=== PATIENT | female | born 1950 | race Caucasian/White ===

== ENCOUNTER 2023-03-29 15:00 | Outpatient (RCR) | payer MEDICARE, OTHER, SELFPAY ==
--- NOTE | 2023-03-05 09:12 | HP.PTEVAL ---
Patient's Visit Information Visit Information Visit Information: GENIA JAIMES is a 72 year old F referred to Physical Therapy by Dr. Rossana Molina MD with a diagnosis of ACUTE ALONDRA LBP. Date of Evaluation: 03/05/23 Physical Therapist: Shannon Barba PT, Cert MDT Visit Plan Frequency: 2-3x /Week Duration: 4-6 Weeks Plan: *CHECK AUTH NEXT VISIT: RECORD # OF VISITS APPROVED AND EXPIRATION DATE. CHECK CODES APPROVED WITH POC* AQUATIC THREAPY FOR PAIN RELIEF, POSTURE CORRECTION/STRENGTHENING, INSTRUCTION IN APPROPRIATE BODY MECHANICS AND ACTIVITY MODIFICATIONS. DLS STARTING WITH A NEUTRAL SPINE PROGRESSING ROM TOLERATED. ALONDRA LE ROM, STRETCHING AND STRENGTHENING. HEP INSTRUCTION. Subjective Subjective: Work/Leisure: RETIRED. 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 Present symptoms: ALONDRA LOW BACK AND ALONDRA THIGH PAIN. R GROIN PAIN. PATIENT DENIES ALONDRA LE NUMBNESS OR TINGLING. Present since: ABOUT 2 MONTHS AGO Pain Scale: WORST 8/10, LEAST 6/10 Currently: 8/10 Is it getting better, worse or staying the same: STAYING THE SAME Commenced as a result of: TRYING A PAIR OF SHOES ON THEN BENT OVER TO PICK SOMETHING UP Symptoms at onset: SEVERE R BUTTOCK PAIN Worse: PUTTING TOO MUCH PRESSURE ON R LE. BENDING OVER. COMING UP FROM BENT POSITION. SITTING. Better: STRETCHING R KNEE TO CHEST AND CROSSING R LEG OVER BODY Disturbed sleep: NO Previous history/Previous treatment: H/O L LE SCIATICA YEARS AGO THAT GOT BETTER WITH PT. NO BACK SURGERY. NO BACK INJECTIONS. NO HIP SX OR INJECTIONS. Treatment this episode: TRIED PT AT [facility] ABOUT 6 VISITS BUT IT DIDN'T HELP - IT WOULDN'T LEAVE MY LEG . NO CHIROPRACTIC. PRESCRIPTION ANTI-INFLAMMATORY X 6 WKS WITH TEMPORARY RELIEF. Coughing/sneezing/straining: NEGATIVE Gait: I CAN'T CARRY ANYTHING - EVEN MY PURSE BECAUSE IT BOTHERS MY LEG AND BACK. CAN'T WALK AT NORMAL PACE. AT FIRST USED A CANE BECAUSE COULDN'T WALK ON R LEG. Bowel or Bladder Dysfunction: NO Accidents: NO Unexplained weight loss: NO Imaging: RECENT LUMBAR X-RAY SHOWING ARTHRITIS IN SPINE PER PATIENT REPORT AT [facility]. NO MRI. PMH/Recent major surgery: RHEUMATOID ARTHRITIS. 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 HYPOTHYROIDISM. HIGH CHOLESTEROL. Objective Objective: Sitting/Standing Posture: POOR. INCREASED KYPHOSIS. NORMAL LORDOSIS. NO RELAVANT LATERAL SHIFT. FH. RSD'S. Active Correction of posture: Other Observations: THIS PATIENT AMBULATES INDEP'LY INTO PT WITHOUT ANY AD'S OR LOB WITH FAIR CADANCE. INDEP TRANSFER SIT TO STAND WITHOUT UE ASSIST. Sensory deficit: ALONDRA LE LIGHT TOUCH SENSATION GROSSLY INTACT AND SYMMETRICAL ROM deficit: VERY TIGHT ALONDRA HS'S AND GASTROC-SOLEUS COMPLEX'S R > L. ALONDRA HIP IR/ER TIGHTNESS SYMMETRICALLY WITH C/O PAIN WITH TESTING L HIP ER AND R HIP IR AND ER. Motor deficit: R HIP 4-/5, KNEE 4/5, ANKLE 5/5. L HIP 4/5, KNEE 5/5, ANKLE 5/5. Reflexes: 2/3 ALONDRA LE'S. Dural Signs: POSITIVE R LE Lumbar mvmt loss: flex - MOD TO CINDY ext - CINDY R SG - CINDY L SG - CINDY PATIENT C/O INCREASED R BUTTOCK AND THIGH PAIN WITH LUMBAR FLEXION AND R SG TESTING. Core strength: POOR Palpation: TENDERNESS WITH PALPATION OF LOWER LUMBAR SPINE, SACRUM, R BUTTOCK AND R GREATER TROCH REGIONS. TREATMENT: NEUROMUSCULAR REEDUCATION - RETRAINING OF MVMT AND POSTURE FOR SITTING, LYING AND STANDING ACTIVITIES. Balance/Special Test Scores Oswestry Low Back Score: 10 Goals Goal 1:: DECRASE C/O LOW BACK PAIN Goal Time Frame: 4-6 Weeks Goal 2:: IMPROVE PERSONAL CARE, LIFTING, SITTING AND HOMEMAKING FUNCTION Goal Time Frame: 4-6 Weeks Goal 3:: INSTRUCT IN PROPHYLAXIS Goal Time Frame: 4-6 Weeks Anticipated Interventions Patient/Client Instruction: Educate patient on: Condition, Plan of Care and Risk Factors For the Purpose of:: To improve self management Therapeutic Exercise to Include: Strength training, Body mechanics, Postural training, Flexibilty training, Neuromotor development, In an aquatic setting and Dynamic Lumbar Stabilization For the Purpose of:: To decrease pain, To increase ROM, To improve muscle performance and motor function, To increase tolerance to activity/condition/position and To improve ability of physical actions for home/community/work/leisure Cryotherapy (ice pack, ice massage): Yes Thermo therapy (hot pack): Yes Ultrasound (thermal/non thermal): Yes For the Purpose of:: To decrease pain and To improve nutrient delivery to tissue Text: Thank you for the opportunity to evaluate your patient. For Medicare and Medicare HMO plans, please review the plan of care and approve it. It will need to be FAXED BACK to us at [phone] for Medicare purposes. For Medicare only, by signing this I certify the plan of care. Please let me know if there are questions or concerns regarding this plan of care. Physician Signature: Date:
== END 2023-03-29 19:00 | disposition home or self-care (01) ==
LOC: PT 15:00
PROVIDERS: PCP Internal Medicine; Referring Provider Internal Medicine; Visit Provider Internal Medicine
DX: M54.50 Low back pain, unspecified (principal)
CPT/HCPCS: 97112; 97113; 97162

== ENCOUNTER 2023-11-18 10:00 | Emergency (ER) | payer MEDICARE, OTHER, SELFPAY ==
[2023-11-18 10:01] VITALS: BP 146/75; PULSE 64; RESP 16; TEMP 36.6; O2SAT 94; BMI 22.6
--- NOTE | 2023-11-18 10:33 | CT_ITS ---
STUDY: CT BRAIN WITHOUT CONTRAST REASON FOR EXAM: Female, 73 years old. near syncope RADIATION DOSAGE (If Supplied By Facility): CTDIvol = ( 44.99 ) mGy, DLP = ( 829.85 ) mGycm TECHNIQUE: Transaxial CT imaging of the brain was performed without administration of intravenous contrast material. Individualized dose optimization techniques were used for this CT. COMPARISON: No relevant priors. FINDINGS: Normal soft tissue structures. There is hyperostosis frontalis internus. There is a 4.8 mm densely calcified nodular density along the anterior left side of the cerebral falx. A meningioma should be ruled out. There is mild cerebral atrophy with widening of the extra-axial spaces and ventricular dilatation. Normal white matter tracts of the cerebral hemispheres. There are small punctate calcifications of the basal ganglia which are seen in the aging brain as a normal variant. Normal brainstem. Normal cerebellum. There is no intracranial hemorrhage. There are no findings of an acute ischemic infarction. Normal visualized paranasal sinuses. CT/Brain/Head without Contrast IMPRESSION: Chronic involutional changes of the brain. Questionable 4.8 mm calcified granuloma in the anterior aspect of the left cerebral falx. Electronically Signed: David Dasilva MD at 12:17 EDT ,
--- NOTE | 2023-11-18 10:33 | EKG12_ITS ---
Test Reason : Blood Pressure : / mmHG Vent. Rate : 068 BPM Atrial Rate : 068 BPM P-R Int : 136 ms QRS Dur : 086 ms QT Int : 404 ms P-R-T Axes : 059 056 036 degrees QTc Int : 429 ms Normal sinus rhythm Nonspecific T wave abnormality Abnormal ECG Confirmed by ABHIJEET ALEXANDER, ANDRIY ([id number]), editorial intern TARIQ SARKAR ([id number]) on 11/22/2023 11:31:54 AM Referred By: Confirmed By:ANDRIY JHA MD
--- NOTE | 2023-11-18 10:40 | EDS_ITS ---
HPI History of Present Illness Chief Complaint: Dizziness Informant: patient Onset/Context/Timing Onset: Today Narrative Narrative: Patient presents secondary to a lightheaded episode with a near fall. Patient states that she will get brief intermittent episodes of lightheadedness that will typically last a minute or 2. She denies chest pain or palpitations during the episode. She does not feel she is when to pass out. Today she was at work at [employer] when a lightheaded episode came on and persisted. She felt that she was going to fall but a coworker came past and helped her to a chair. She did not have chest pain or palpitations. She did not feel nauseated. She does report increased stress recently with her currently in the hospital. She denies headaches. [facility] Medical History (Updated 11/18/23 @ 14:[address] Olive Salazar MD) Crohn's disease Anxiety and depression Hyperthyroidism Home Medications ?Medication ?Instructions ?Recorded ?Last Taken ?Type NK 11/18/23 Unknown History Surgical History (Updated 11/18/23 @ 10:[address] Olive Salazar MD) History of colectomy Social History Smoking Status: Never smoker ROS ROS ED Constitutional Constitutional ED: Denies chills or fever(s) Eyes Eyes: Denies discharge from eye(s) ENT ENT ED: Denies discharge from eye(s), rhinorrhea or sore throat Cardiovascular Cardiovascular: Denies chest pain or palpitations Respiratory/Chest Respiratory/Chest: Denies cough or dyspnea Gastrointestinal Gastrointestinal: Denies abdominal pain, nausea or vomiting Genitourinary Genitourinary ED: Denies difficulty urinating or dysuria Musculoskeletal Musculoskeletal: Denies back pain or extremity pain Integumentary Denies Abrasions or rash Neurologic Neurologic: Reports weakness; Denies headache(s) Psychiatric Psychiatric: Denies anxiety or depression Allergic/Immunologic Allergic/Immunologic ED: Denies lip swelling or urticaria EXAM Physical Exam Const Vital Signs: 11/18/23 10:01 11/18/23 10:59 11/18/23 12:00 Temperature 97.8 F 98.1 F Temperature Source Oral Oral Pulse Rate 64 78 Pulse Rate [Lying] 68 Pulse Rate [Sitting (for 1 minute prior to obtaining)] 68 Pulse Rate [Standing (for 1 minute prior to obtaining)] 74 Respiratory Rate 16 16 Blood Pressure 146/75 H 137/87 H Blood Pressure [Lying] 129/73 H Blood Pressure [Sitting (for 1 minute prior to obtaining)] 143/78 H Blood Pressure [Standing (for 1 minute prior to obtaining)] 129/82 H Blood Pressure Mean 98 103 Blood Pressure Mean [Lying] 91 Blood Pressure Mean [Sitting (for 1 minute prior to obtaining)] 99 Blood Pressure Mean [Standing (for 1 minute prior to obtaining)] 97 Pulse Ox 94 97 Oxygen Delivery Method Room Air 11/18/23 13:50 Temperature Temperature Source Pulse Rate 58 L Pulse Rate [Lying] Pulse Rate [Sitting (for 1 minute prior to obtaining)] Pulse Rate [Standing (for 1 minute prior to obtaining)] Respiratory Rate 16 Blood Pressure 125/86 H Blood Pressure [Lying] Blood Pressure [Sitting (for 1 minute prior to obtaining)] Blood Pressure [Standing (for 1 minute prior to obtaining)] Blood Pressure Mean 99 Blood Pressure Mean [Lying] Blood Pressure Mean [Sitting (for 1 minute prior to obtaining)] Blood Pressure Mean [Standing (for 1 minute prior to obtaining)] Pulse Ox 93 Oxygen Delivery Method Room Air Positive well nourished and well developed General Appearance ED: well developed HEENT Reports normocephalic and head/scalp atraumatic Eyes PERRL and EOMs intact bilaterally Neck supple Chest Wall inspection of chest normal and palpation of chest normal Resp normal respiratory effort and clear to auscultation bilaterally Cardio regular rate and regular rhythm GI normal to inspection, nondistended, normoactive bowel sounds Palpation: soft Extremity normal to inspection Neuro oriented x3 and no sensory deficits noted Sensorium / Orientation: alert Motor Exam: strength 5/5 throughout Psych mental status grossly normal Skin no rashes or lesions noted MDM MDM MDM Narrative Medical decision making narrative: Patient placed on hall monitor. EKG obtained to evaluate for cardiac arrhythmia/ischemia. IV line initiated. Labwork obtained to evaluate for le ukocytosis, anemia, and electrolyte derangement. Chest x-ray obtained to evaluate for acute lung pathology, cardiac size, or mediastinal abnormality. CT scan of the head will be obtained given recurrent dizzy episodes. Orthostatic vital signs will also be obtained. History & Record Review Discussion w/independent historian: Patient Lab Data Attestation: I reviewed the patient's lab results. Labs: Laboratory Results - last 24 hr 11/18/23 11/18/23 10:35 13:15 WBC 4.2 L RBC 4.07 L Hgb 12.6 Hct 38.6 MCV 94.8 MCH 31.0 MCHC 32.6 RDW Std Deviation 45.8 H RDW Coeff of Hellen 13.3 Plt Count 186 MPV 9.8 Immature Gran % (Auto) 0.200 Neut % (Auto) 58.0 Lymph % (Auto) 26.6 Rowan % (Auto) 10.2 H Eos % (Auto) 4.3 Baso % (Auto) 0.7 Absolute Neuts (auto) 2.4 Absolute Lymphs (auto) 1.12 Nucleated RBC % 0 Sodium 136 Potassium 3.9 Chloride 103 Carbon Dioxide 27.0 Anion Gap 6 BUN 9 Creatinine 0.69 Estim Creat Clear Calc 47.26 Est GFR (MDRD) Af Amer 107 Est GFR (MDRD) Non-Af 88 BUN/Creatinine Ratio 13.0 Glucose 102 Calcium 9.5 Troponin I High Sens 5 7 Radiography Chest X-Ray - ED: 1 View, Read by ED Physician, Normal, Heart, Lungs and Mediastinum Diagnostic Testing: Clinical Impression(s) from Imaging Studies Brain CT 11/18/23 10:33 IMPRESSION: Chronic involutional changes of the brain. Questionable 4.8 mm calcified granuloma in the anterior aspect of the left cerebral falx. Electronically Signed: David Dasilva MD at 12:17 EDT , Chest X-Ray 11/18/23 11:23 IMPRESSION: Hyperinflation. The lungs are clear. Electronically Signed: David Dasilva MD at 12:15 EDT , EKG Initial EKG: Attestation: I personally reviewed and interpreted this EKG as follows: Interpretation: Sinus Rhythm (Sinus at 68 with nonspecific T wave flattening lateral leads. No acute ST change.) Treatment and Re-Evaluation :: CBC was white count of 4.2 with a hemoglobin 12.6. Normal differential. Chemistry studies unremarkable. Initial troponin is 5 with a 2-hour repeat troponin of 7. Portable chest x-ray per my interpretation reveals no acute findings. Radiology interpretation reviewed and agrees. EKG is sinus with no evidence of ischemia. Orthostatic vital signs were obtained and are unremarkable. Patient feels well on repeat evaluation. We discussed potential stress causing some of her symptoms as her is currently in the hospital and she has been trying to do more than normal. At this time she is reassured with the negative workup that we have performed and she will follow with her primary care physician. Return instructions given. Discharge Plan Triage Chief Complaint: Dizziness ED Provider: Olive Salazar Dx/Rx/DC Orders Clinical Impression: Fatigue, Dizziness Instructions: ED Dizziness, Uncertain Cause Prescriptions: No Action NK Primary Care Provider: Rossana Molina Referrals: Rossana Molina MD [Primary Care Provider] - 1 Week if not improving Print Language: Burundian Disposition Disposition: Home, Self Care
[2023-11-18 10:59] VITALS: BP 129/73; BP 129/82; BP 143/78; PULSE 68; PULSE 74
[2023-11-18 11:01] LABS: Absolute Lymphocyte Count 1.12 X10^3/uL (0.83-4.51); Absolute Neutrophil Count 2.4 X10^3/uL (2.0-7.7); Basophil# 0.03 X10^3/uL; Basophil% 0.7 % (0-1); Eosinophil# 0.18 X10^3/uL; Eosinophils% 4.3 % (0-5); Hematocrit 38.6 % (37-47); Hemoglobin 12.6 g/dL (12.0-15.0); Lymphocyte # 1.12 X10^3/ul (0.83-4.51); Lymphocyte % 26.6 % (19-41); Mean Corp Hgb Conc 32.6 g/dL (32-36); Mean Corpuscular Volume 94.8 fL (81-99); Mean Platelet Vol. 9.8 fl (6.2-12.0); Monocyte# 0.43 X10^3/uL; Monocyte% 10.2 % (0-10); NRBC Flagged by Analyzer 0 % (0-5); Neutrophil # 2.44 X10^3/uL (2.7-7.7); Platelet Count 186 K/mm3 (150-450); RBC Distribution Width CV 13.3 % (11.6-14.6); RBC Distribution Width SD 45.8 fl (35.1-43.9); Red Blood Count 4.07 M/mm3 (4.2-5.4); White Blood Count 4.2 K/mm3 (4.4-11.0)
[2023-11-18 11:23] LABS: Anion Gap 6 (5-15); BUN 9 mg/dL (7-18); Calcium,Total 9.5 mg/dL (8.5-10.1); Chloride 103 mmol/L (98-107); Creatinine, Serum 0.69 mg/dL (0.55-1.02); EST Glomerular Filtration Rate 88 mL/min (>60); Est Glom Filt Rate - Afr Amer 107 mL/min (>60); Estimated Creatinine Clearance 47.26 ml/min; Glucose 102 mg/dL (74-106); Potassium 3.9 mmol/L (3.5-5.1); Sodium Level 136 mmol/L (136-145); Troponin-I HS (w/2H Reflex) 5 pg/mL (3.0-54.0)
--- NOTE | 2023-11-18 11:23 | RAD_ITS ---
STUDY: X-RAY CHEST REASON FOR EXAM: Female, 73 years old. Dizzy TECHNIQUE: Single AP portable view of the chest. COMPARISON: Comparison is made with prior study dated December 27, 2003. FINDINGS: EKG electrodes are seen. Hyperinflation. The lungs are clear. There is no demonstrated pleural abnormality. Normal size heart. Normal mediastinum and anyi. Normal visualized pulmonary arteries. Normal visualized aortic arch and descending thoracic aorta. There are degenerative changes of the visualized thoracic spine. Normal visualized ribs, clavicles, and shoulders. There is no demonstrated abnormality of the visualized soft tissue structures of the upper abdomen. RAD/Chest 1 View (Portable) IMPRESSION: Hyperinflation. The lungs are clear. Electronically Signed: David Dasilva MD at 12:15 EDT ,
[2023-11-18] MEDS: 0.9% Normal Saline (1000mL) 1,000 ML 1000 ML IV (11:33)
--- NOTE | 2023-11-18 11:57 | ED.RN ---
[place] [facility] [id number]. DR URIBE
[2023-11-18 12:00] VITALS: BP 137/87; PULSE 78; RESP 16; TEMP 36.7; O2SAT 97
[2023-11-18 12:58] LABS: Reflex Troponin-HS? (from REC) Y
[2023-11-18 13:41] LABS: Troponin-I HS 7 pg/mL (3.0-54.0)
[2023-11-18 13:50] VITALS: BP 125/86; PULSE 58; RESP 16; O2SAT 93
[2023-11-18 14:00] LABS: Bacteria 0 SEEN /hpf (None Seen); Mucous, Urine 0 SEEN /hpf (<or=2+); Red Blood Cells-Urine 0 SEEN /hpf (0-5); Squamous Epithelial Cells - UA 0 SEEN /hpf (5-10)
[2023-11-18 14:09] VITALS: BP 117/59; PULSE 61; RESP 16; TEMP 36.7; O2SAT 94
[2023-11-18 14:11] LABS: Color, Urine Straw (Yellow); Glucose, Dipstick Normal (Normal); Ketone-Dipstick Negative (Negative); Leukocyte Esterase-Dipstick 25 /ul (Negative); Nitrite-Dipstick Negative (Negative); Occult Blood-Urine Negative /ul (Negative); Protein-Dipstick Negative (Negative); Urine Bilirubin Dipstick Negative (Negative); Urine Clarity Clear (Clear); Urine Urobilinogen Normal (Normal)
[2023-11-18 14:17] LABS: White Blood Cells 0-5 SEEN /hpf (0-5)
== END 2023-11-18 14:11 | disposition home or self-care (01) ==
PROVIDERS: Emergency Provider Emergency Medicine; PCP Internal Medicine; Visit Provider Emergency Medicine
DX: R53.83 Other fatigue (principal); R42 Dizziness and giddiness
CPT/HCPCS: 70450; 71045; 80048; 81001; 84484; 85025; 93005; 96360; 99285; J7030; A4216

== ENCOUNTER → 2024-11-07 | Outpatient (CLI) | payer MEDICARE, OTHER, SELFPAY ==
--- NOTE | 2024-11-07 16:28 | MRI_ITS ---
PROCEDURE: SPINE LUMBAR (ROUTINE) 11/07/2024 REASON FOR EXAM: PAIN TECHNIQUE: Multiplanar and multisequence images were obtained without IV contrast administration. COMPARISON: Lumbar spine series, 09/22/2024. FINDINGS: Vertebrae: There are no compression fractures. There is a benign hemangioma in the L1 vertebral body. There is otherwise unremarkable bone marrow signal in the lumbar vertebral bodies. Alignment: There is maintenance of the normal lumbar lordosis. Conus Medullaris: The conus medullaris terminates normally at the mid L1 level. L1-2: There is minimal disc degeneration. There is no disc bulging or murali protrusion. There is bilateral facet arthropathy without ligamentum flavum bulging. There is no central canal stenosis, lateral recess stenosis or foraminal narrowing. L2-3: There is a broad-based central disc protrusion. There is bilateral facet arthropathy with ligamentum flavum bulging. There is central canal stenosis with the AP dimension of the spinal canal measuring 7 mm. There is mild lateral recess stenosis and foraminal narrowing bilaterally. L3-4: There is a broad-based central disc protrusion. There is bilateral facet arthropathy with ligamentum flavum bulging. There is central canal stenosis with the AP dimension of the spinal canal measuring 7 mm. There is moderate lateral recess stenosis and foraminal narrowing bilaterally. L4-5: There is a broad-based central disc protrusion. There is bilateral facet arthropathy with ligamentum flavum bulging. There is central canal stenosis with the AP dimension of the spinal canal measuring 5 mm. There is moderate lateral recess stenosis and foraminal narrowing bilaterally. L5-S1: There is a broad-based central disc protrusion. There is bilateral facet arthropathy with ligamentum flavum bulging. There is central canal stenosis with the AP dimension of the spinal canal measuring 7 mm. There is moderate lateral recess stenosis and mild foraminal narrowing bilaterally. There is a right ovarian cyst measuring 2.2 cm in diameter. There is a presacral fluid collection incompletely imaged of indeterminate etiology. MRI/Spine Lumbar (Routine) IMPRESSION: 1. Diffuse central canal stenosis of the lumbar spine as described. 2. There is superimposed facet arthropathy throughout the lumbar spine. 3. There is lateral recess stenosis and/or foraminal narrowing at multiple lev els as described. 4. Presacral fluid collection of indeterminate etiology. Recommendation: MRI pelvis. Reading Location: [id number]
== END | disposition home or self-care (01) ==
LOC: MRI 16:09
PROVIDERS: PCP Internal Medicine; Referring Provider Student in an Organized Health Care Education/Training Program; Visit Provider Student in an Organized Health Care Education/Training Program
DX: M51.369 Other intervertebral disc degeneration, lumbar region without mention of lumbar back pain or lower extremity pain (principal)
CPT/HCPCS: 72148